=== PATIENT | female | born 1980 | race Caucasian/White ===

== ENCOUNTER → 2017-11-10 12:21 | Outpatient (CLI) | payer MEDICAID, OTHER, SELFPAY | PROVIDERS: Visit Provider Obstetrics & Gynecology | DX: Z34.92 Encounter for supervision of normal pregnancy, unspecified, second trimester (principal) ==

== ENCOUNTER 2023-09-24 03:08 | Emergency (ER) | payer OTHER, MEDICAID, SELFPAY ==
[2023-09-24] VITALS (8 sets, daily range): BP systolic 108–125; BP diastolic 61–75; PULSE 89–115; RESP 16–24; TEMP 36.8–37.3; O2SAT 99–100; BMI 22.8
[2023-09-24] MEDS: SODIUM CHLORIDE 0.9% 1,000 ML 1000 ML IV (03:23)
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
[2023-09-24 03:33] LABS: Add Manual Diff / Slide Review NO; Basophils Absolute Auto 100 /uL (0-100); Basophils Percent Auto 0.7 % (0-2); Eosinophils Absolute Auto 0 /uL (0-450); Eosinophils Percent Auto 0.1 % (2-4); Hematocrit 25.5 % (36-46); Hemoglobin 7.6 g/dL (12.0-16.0); Lymphocytes Absolute Auto 1000 /uL (1100-4500); Mean Corpuscular HGB Conc 29.9 % (30-36); Mean Corpuscular Hemoglobin 17.6 PG (26-34); Mean Corpuscular Volume 58.8 fL (80-100); Monocytes Absolute Auto 1000 /uL (0-900); Monocytes Percent Auto 7.4 % (3-14); Neutrophils Absolute Auto 11500 /uL (1500-7000); Neutrophils Percent Auto 84.8 % (50-75); Platelet Count 375 X10^3/uL (150-400); Red Blood Cell Count 4.34 X10^6/uL (4.0-5.2); Red Cell Distribution Width 19.8 % (11.6-14.8); White Blood Cell Count 13.5 X10^3/uL (4.5-11.0)
[2023-09-24] MEDS: KETOROLAC 30 MG/ML VIAL 15 MG IV (03:33)
[2023-09-24 03:42] LABS: Alanine Aminotransferase 14 IU/L (<35); Albumin 4.3 g/dL (3.5-5.0); Albumin Globulin Ratio 1.5 (1.0-2.8); Alkaline Phosphatase 72 U/L (38-126); Aspartate Aminotransferase 18 IU/L (14-36); BUN Creatinine Ratio 14.1 (6-22); Bilirubin Total 0.6 mg/dL (0.2-1.3); Blood Urea Nitrogen 12 mg/dL (7-17); Calcium 9.3 mg/dL (8.4-10.2); Carbon Dioxide 26 mmol/L (22-32); Chloride 102 mmol/L (98-107); Estimated Glomerular Filt Rate > 60 mL/min (>60); Globulin 2.9 g/dL (1.7-4.1); Glucose 140 mg/dL (70-100); HEMOLYSIS < 15 (0-50); Sodium 137 mmol/L (137-145); Total Protein 7.2 g/dL (6.3-8.2)
[2023-09-24 03:51] LABS: Platelet Estimate Adequate on smear
[2023-09-24 03:52] LABS: Anisocytosis 2+; Microcytosis 2+
[2023-09-24 03:53] LABS: Poikilocytosis 1+; Schistocytes 1+; Stomatocytes 1+; Target Cells 1+
[2023-09-24 03:54] LABS: Ovalocytes 1+
[2023-09-24 04:07] LABS: Appearance Urine UA CLEAR; Bilirubin Urine UA NEGATIVE (NEGATIVE); Color Urine UA YELLOW; Glucose Urine UA NEGATIVE (Negative); Ketones Urine UA NEGATIVE (NEGATIVE); Leukocyte Esterase Urine UA 2+ (NEGATIVE); Nitrite Urine UA POSITIVE (Negative); Occult Blood Urine UA TRACE-INTACT (Negative); Protein Urine UA 1+ (Negative); Specific Gravity Urine UA 1.015 (1.000-1.035); Urobilinogen Urine UA 0.2 E.U./dL (0.2)
[2023-09-24 04:07] LABS: Influenza A - CEPHEID Flu A NEGATIVE (NEGATIVE); Influenza B - CEPHEID Flu B NEGATIVE (NEGATIVE); Respiratory Syncytial Virus Negative (Negative)
[2023-09-24 04:18] LABS: COVID-19 CEPHEID 4-PLEX PCR Negative (Negative)
[2023-09-24 04:19] LABS: Bacteria Urine Many (>30); RBC Urine 0-1/HPF (0-5/HPF); Urine Volume 10mL (spun); WBC Urine 5-10/HPF (0-5/HPF)
[2023-09-24 04:20] LABS: Culture Indicated Urine Specimen Cultured; Squamous Epithelial Cell Urine 1-5 /HPF (0-5/HPF); UR Morphine/Opiate cutoff 300 Negative (Negative); Urine Amphetamines Positive (Negative); Urine Barbiturates Negative (Negative); Urine Benzodiazepines Negative (Negative); Urine Cocaine Positive (Negative); Urine MDMA Negative (Negative); Urine Methadone Negative (Negative); Urine Methamphetamines Positive (Negative); Urine Oxycodone Negative (Negative); Urine Phencyclidine Negative (Negative); Urine Tetrahydrocannabinol Negative (Negative); Urine Tricyclic Antidepressant Negative (Negative)
--- NOTE | 2023-09-24 04:21 | DI.CT.S_ITS ---
PROCEDURE: CT ABDOMEN PELVIS W CON INDICATIONS: R FLANK PAIN, FEVER, ANEMIA TECHNIQUE: After the administration of intravenous contrast, axial sections acquired from the lung bases to the pubic symphysis. Coronal and sagittal reformats were performed. For radiation dose reduction, the following was used: automated exposure control, adjustment of mA and/or kV according to patient size. COMPARISON: None. FINDINGS: Image quality: Diagnostic. Lower Chest: Asymmetric left breast tissue, (2/8). ABDOMEN: Liver: No solid mass. Gallbladder: Decompressed. No calcified gallstones. Biliary ducts: No biliary dilation. Pancreas: No ductal dilation. Spleen: Size is within normal limits. Adrenal Glands: No adrenal nodules. Kidneys and Ureters: No striated nephrogram. No significant hydronephrosis. Mild right hydroureter compared to the left. There is mild stranding about the right ureter. No kidney stones identified. No solid renal mass. Stomach and Bowel: Normal colonic caliber, without significant wall thickening. The appendix is not dilated. Peritoneum: No abnormal intraperitoneal fluid. No free air. Ventral Wall: No significant ventral hernia. Abdominal Nodes: No retroperitoneal or mesenteric adenopathy by size criteria. Vessels: Aorta and inferior vena cava are normal in size. PELVIS: Pelvic Organs: Suspect small left ovarian cyst measuring 2.2 cm. Anteverted uterus. Bladder: Partially distended. No gallstone. Pelvic Nodes: No enlarged lymph nodes. Miscellaneous: No inguinal hernias are seen. Bones: No aggressive osseous abnormality. IMPRESSION: 1. Mild stranding about the proximal right ureter. Right ureter is mildly dilated compared to the left. These findings could be seen in the setting of recently passed kidney stone or upper urinary tract infection. 2. No striated nephrogram demonstrated. No significant hydronephrosis. No kidney stones identified. No bladder stone. 3. The appendix is not dilated. No bowel obstruction. 4. Asymmetric left breast tissue. This could be due to cysts or underlying mass. Recommend mammogram and ultrasound for further evaluation. -Minor discrepancy with the overnight preliminary interpretation. The right renal pelvis is not significantly dilated. The right ureter is mildly dilated. Asymmetric left breast tissue. Comment: Findings were discussed with Frances Navas at time of dictation. Dictated by: Nba Vazquez M.D. on 09/24/2023 at 8:17 Approved by: Nba Vazquez M.D. on 09/24/2023 at 8:42
[2023-09-24] MEDS: cefTRIAXone 1,000 MG in SODIUM CHLORIDE 0.9% 100 ML 200 MG IV (05:59)
[2023-09-24] MEDS: DROPERIDOL 5 MG/2 ML VIAL 2.5 MG IV (05:59)
[2023-09-24] MEDS: ACETAMINOPHEN 325 MG TABLET 975 MG PO (05:59)
--- NOTE | 2023-09-24 10:15 | PC.NURSE ---
Per [facility] pharmacy, cefpodoxime 200 mg po is not covered under her insurance without prior authorization. Spoke with Dr. Navas and Keflex 500 mg po tid x 7 days ordered. I spoke to pharmacist to fill that medication.
== END 2023-09-24 06:48 | disposition home or self-care (01) ==
PROVIDERS: Emergency Provider Emergency Medicine
DX: N12 Tubulo-interstitial nephritis, not specified as acute or chronic (principal); D64.9 Anemia, unspecified; F15.90 Other stimulant use, unspecified, uncomplicated; F14.90 Cocaine use, unspecified, uncomplicated; Z20.822 Contact with and (suspected) exposure to COVID-19
CPT/HCPCS: 0241U; 36415; 74177; 80053; 80305; 81001; 85025; 87077; 87086; 87186; 87210; 96361; 96365; 96375; 99284; J0696; J1790; J1885; Q9967